=== PATIENT | female | born 1995 | race Two or more races ===

== ENCOUNTER 2023-03-14 13:58 | Outpatient (AMB) | payer OTHER, SELFPAY ==
--- NOTE | 2023-03-14 13:57 | A.OFFPC_ITS ---
Vital Signs 03/14/23 14:01 Height 5 ft 5 in Weight 173 lb 8 oz BMI 28.9 BP 116/84 Blood Pressure Location Rt brachial Position Sitting Pulse 83 Pulse Source Pulse Oximeter Pulse Oximetry (%) 97 Oxygen Delivery Method Room Air Intake Visit Reasons: New patient-physical exam Allergies No Known Allergies Allergy (Verified 03/14/23 14:03) Medication List - Last Reconciled 03/14/23 by Valentine Bhatia MD No Known Home Meds Tobacco use date assessed: 03/14/23 Dental Screening Dental Screen Date: 03/14/23 Did you have a dental visit in the last 12 months?: Yes Did you have a dental problem in the last 6 months where you did not have access to dental care?: No Was dental information given to patient?: Patient has dentist HPI New patient-physical exam HPI Details Patient is 27-year-old female came in today for her initial establish care and physical exam She moved from [facility] and has not seen any primary care back home Patient says that she has a history of chronic constipation she has tried taking more fiber and drink more water but that is not helping I have told her to take Senokot as tablets they are [id number] 1 or 2 daily If that does not work she needs to get back to me. Patient already have OBGYN Doctor Otmaskin Her BMI is 28.9 patient would like to have a dietary consultation. She also have facial acne and for that she would like a referral to Dermatology Patient wears glasses for that she need appointment with accounting professor she will book appointment herself. Lab order placed to be done fasting she is complaining of feeling tired and fatigued most days. We will be monitoring CBC and thyroid test along with vitamin deficiencies. She also have a family history of thyroid problem. Her depression screening is positive patient says that she was taking medication at 1 time but she does not want to take medication anymore. She would like to manage it herself, she also declined therapy appointments I offered her a follow-up appointment to go over labs which patient has declined today she will give me a call if she need to discuss anything further. She would return next year for physical examination. [facility] Social History Housing: Apartment e-Cigarette/Vaping Use: Never Used service: No Cognitive needs: No Hearing needs: No Vision needs: Yes Questionnaire PHQ-9 Over the last 2 weeks, how often have you been bothered by any of the following problems? 1. Little interest or pleasure in doing things: several days 2. Feeling down, depressed, or hopeless: several days 3. Trouble falling or staying asleep, or sleeping too much: several days 4. Feeling tired or having little energy: more than half the days 5. Poor appetite or overeating: more than half the days 6. Feeling bad about yourself - or that you are a failure or have let yourself or your family down: more than half the days 7. Trouble concentrating on things, such as reading the newspaper or watching television: more than half the days 8. Moving or speaking so slowly that other people could have noticed. Or the opposite - being so fidgety or restless that you have been moving around a lot more than usual: not at all 9. Thoughts that you would be better off or of hurting yourself in some way: not at all Total score: 11 Depression Screening Interpretation: Positive 08272 - PHQ-9 Billing: Yes Source: Developed by Drs. Benigno Lucas, Alesia Gonzalez, Thomas Mccrary and colleagues, with an educational phuong from [employer]. Thrive Questionnaire Date Thrive assessed: 03/14/23 I am a: Patient What is your living situation today?: I have a steady place to live Within the past 12 months, did the food you bought not last and you didn't have the money to get more?: Never true Within the past 12 months, did you worry whether your food would run out before you got money to buy more?: Never true Do you have trouble paying for medicines?: No Do you have trouble getting transportation to medical appointments?: No Do you have trouble paying your heating and electricity bill?: No Do you have trouble taking care of your child, family member or friend?: No Do you have trouble with day-to-day activities such as bathing, preparing meals, shopping, managing finances, etc.?: No Are you currently unemployed and looking for a job?: No Are you interested in more education?: No Currently or been in a relationship where the following occur: no concerns reported AUDIT C Alcohol Use Questionnaire (AUDIT-C) 1. How often do you have a drink containing alcohol?: Never 3. How often do you have six or more drinks on one occasion?: Never Total Score: 0 Score Reviewed/Action Taken: Yes ROJELIO-7 AMB Questionnaire ROJELIO-7 Date ROJELIO - 7 assessed: 03/14/23 Feeling nervous, anxious, or on edge: 2 = More than half the days Not being able to stop or control worryin = More than half the days Worrying too much about different things: 2 = More than half the days Trouble relaxin = Several days Being so restless that it is hard to sit still: 1 = Several days Becoming easily annoyed or irritable: 1 = Several days Feeling afraid as if something awful might happen: 2 = More than half the days Total ROJELIO-7 score (0-4 normal; 5-9 mild; 10-14 moderate; 15-21 severe): 11 Source: Developed by Drs. Benigno Lucas, Alesia Gonzalez, Thomas Mccrary and colleagues, with an educational phuong from [employer]. ROJELIO-7 Assessment Billing ROJELIO-7 Assessment Tool: ROJELIO-7 Assessment 12329 Review of Systems Const Denies chills, Denies fever(s) and Denies headache(s) Eyes Denies blurry vision ENT Denies headache(s), Denies nasal discharge, Denies nasal obstruction, Denies odynophagia and Denies sinus pain Card Denies chest pain at rest and Denies chest pain with activity Resp Denies cough and Denies hemoptysis GI Denies diarrhea, Denies odynophagia, Denies vomiting and Denies hematemesis Reports as per HPI Musc Denies abnormal gait Skin/Breast Reports as per HPI Neuro Denies Neuro-related abnormal movements, Denies Abnormal speech present, Denies abnormal gait, Denies headache(s) and Denies Sensory deficit (Neuro) Psych Denies mood swings and Denies paranoia Endo Reports as per HPI Mehdi/Lymph Reports as per HPI Aller/Immun Reports as per HPI Physical exam (Primary Care) Vital Signs: Last Vital Signs Pulse 83 03/14/23 14:01 BP 116/84 03/14/23 14:01 Pulse Ox 97 03/14/23 14:01 Oxygen Delivery Method Room Air 03/14/23 14:01 BMI result Body Mass Index 28.9 Tobacco/Smoking Status: Tobacco use Status Tobacco use date assessed 03/14/23 03/14/23 13:59 e-Cigarette/Vaping Use Never Used 03/14/23 13:59 Depression Screening Interpretation: Positive Currently or been in a relationship where the following occur: no concerns reported Const General: cooperative, comfortable and no acute distress Orientation/consciousness: patient oriented x3 HENMT Head: Yes normocephalic and Yes atraumatic Eyes General: appearance normal, both eyes and all related structures Pupils: Equal, round and reactive pupils present EOM: EOMs intact bilaterally Neck Neck: Yes supple and No lymphadenopathy Thyroid: Thyroid normal Lymphatic: no lymphadenopathy noted Resp Effort & Inspection: normal respiratory effort and able to speak in complete sentences Auscultation: clear to auscultation bilaterally Cardio Heart sounds: S1 normal heart sound present and S2 normal heart sound present GI Palpation (GI): Soft to palpation and nontender Auscultation: normal bowel sounds General: Yes no CVA tenderness Back/Spine/Pelvis Back: no CVA tenderness Skin General skin exam: elasticity normal and turgor normal Neuro General: patient oriented x3 and gait normal Cranial nerves: Yes Equal, round and reactive pupils present Speech: No Abnormal speech present Sensory Exam: No Sensory deficit (Neuro) Coordination: tandem gait normal and Romberg test negative Extrem General: Yes normal exam except as noted and No edema Assessment and Plan Assessment & Plan (1) Encounter for general adult medical examination with abnormal findings: Code(s): Z00.01 - Encounter for general adult medical examination with abnormal findings (2) Major depressive disorder, recurrent, mild: Code(s): F33.0 - Major depressive disorder, recurrent, mild (3) Fatigue: Code(s): R53.83 - Other fatigue Qualifiers: Fatigue type: chronic, unspecified Qualified Code(s): R53.82 - Chronic fatigue, unspecified (4) Acne erythematosa: Code(s): L71.9 - Rosacea, unspecified (5) Tired: Code(s): R53.83 - Other fatigue (6) Overweight (BMI 25.0-29.9): Code(s): E66.3 - Overweight (7) Constipation by delayed colonic transit: Code(s): K59.01 - Slow transit constipation Plan Patient is 27-year-old female came in today for her initial establish care and physical exam She moved from [facility] and has not seen any primary care back home Patient says that she has a history of chronic constipation she has tried taking more fiber and drink more water but that is not helping I have told her to take Senokot as tablets they are [id number] 1 or 2 daily If that does not work she needs to get back to me. Patient already have OBGYN Doctor Mamadou Her BMI is 28.9 patient would like to have a dietary consultation. She also have facial acne and for that she would like a referral to Dermatology Patient wears glasses for that she need appointment with accounting professor she will book appointment herself. Lab order placed to be done fasting she is complaining of feeling tired and fatigued most days. We will be monitoring CBC and thyroid test along with vitamin deficiencies. She also have a family history of thyroid problem. Her depression screening is positive patient says that she was taking medication at 1 time but she does not want to take medication anymore. She would like to manage it herself, she also declined therapy appointments I offered her a follow-up appointment to go over labs which patient has declined today she will give me a call if she need to discuss anything further. She would return next year for physical examination. Orders: Orders Complete Blood Count Auto Diff Today E66.3 - Overweight, F33.0 - Major depressive disorder, recurrent, mild, K59.01 - Slow transit constipation, L71.9 - Rosacea, unspecified, R53.83 - Other fatigue, Z00.01 - Encounter for general adult medical examination with abnormal findings TSH reflex Free T4 Today E66.3 - Overweight, F33.0 - Major depressive disorder, recurrent, mild, K59.01 - Slow transit constipation, L71.9 - Rosacea, unspecified, R53.83 - Other fatigue, Z00.01 - Encounter for general adult medical examination with abnormal findings Vitamin B12 Today E66.3 - Overweight, F33.0 - Major depressive disorder, recurrent, mild, K59.01 - Slow transit constipation, L71.9 - Rosacea, unspecified, R53.83 - Other fatigue, Z00.01 - Encounter for general adult medical examination with abnormal findings Comprehensive [place]. Panel Fast Today E66.3 - Overweight, F33.0 - Major depressive disorder, recurrent, mild, K59.01 - Slow transit constipation, L71.9 - Rosacea, unspecified, R53.83 - Other fatigue, Z00.01 - Encounter for general adult medical examination with abnormal findings Lipid Panel Today E66.3 - Overweight, F33.0 - Major depressive disorder, recurrent, mild, K59.01 - Slow transit constipation, L71.9 - Rosacea, unspecified, R53.83 - Other fatigue, Z00.01 - Encounter for general adult medical examination with abnormal findings Vitamin D 25-OH (D2 and D3) Today E66.3 - Overweight, F33.0 - Major depressive disorder, recurrent, mild, K59.01 - Slow transit constipation, L71.9 - Rosacea, unspecified, R53.83 - Other fatigue, Z00.01 - Encounter for general adult medical examination with abnormal findings Referrals [employer]VERT[employer] SALES [employer]OC[employer] Referral Z01.419 - Encounter for gynecological examination (general) (routine) without abnormal findings Dermatology Referral L71.9 - Rosacea, unspecified Medications: New sennosides-docusate sodium 8.6-50 mg (Senokot-S) 1 tab-cap PO BEDTIME 90 days 90 tabs 0RF K59.03 - Drug induced constipation, T40.2X5A - Adverse effect of other opioids, initial encounter Coding Level of Care Code New Pt Prev Care 18-39yr(08556 Diagnoses Encounter for general adult medical examination with abnormal findings Z00.01 Major depressive disorder, recurrent, mild F33.0 Chronic fatigue R53.82 Fatigue type: chronic, unspecified Acne erythematosa L71.9 Tired R53.83 Overweight (BMI 25.0-29.9) E66.3 Constipation by delayed colonic transit K59.01 Additional Codes ROJELIO-7 Assessment Billing - ROJELIO-7 Assessment Tool: ROJELIO-7 Assessment 39143 ([id number])
[2023-03-14 14:01] VITALS: BP 116/84; PULSE 83; O2SAT 97; BMI 28.9
== END 2023-03-14 14:21 | disposition home or self-care (01) ==
PROVIDERS: PCP Internal Medicine; Visit Provider Internal Medicine
DX: Z00.01 Encounter for general adult medical examination with abnormal findings (principal); F33.0 Major depressive disorder, recurrent, mild; R53.82 Chronic fatigue, unspecified; L71.9 Rosacea, unspecified; R53.83 Other fatigue; E66.3 Overweight; K59.01 Slow transit constipation
CPT/HCPCS: 99385

== ENCOUNTER 2023-03-20 08:11 | Outpatient (REF) | payer OTHER, SELFPAY ==
[2023-03-25 16:47] LABS: Vitamin D 25-OH, D2 <4 ng/mL; Vitamin D 25-OH, D3 8 ng/mL; Vitamin D 25-OH, Total 8 ng/mL (30-100)
== END 2023-03-20 08:12 | disposition home or self-care (01) ==
LOC: HO.HMGCLDS 08:11
PROVIDERS: PCP Internal Medicine; Visit Provider Internal Medicine
DX: Z00.01 Encounter for general adult medical examination with abnormal findings (principal); L71.9 Rosacea, unspecified; E66.3 Overweight; F33.0 Major depressive disorder, recurrent, mild; K59.01 Slow transit constipation
CPT/HCPCS: 36415; 80053; 80061; 82306; 82607; 84443; 85025

== ENCOUNTER 2024-04-06 10:25 | Outpatient (AMB) | payer OTHER, SELFPAY ==
[2024-04-06 10:31] VITALS: BP 124/78; PULSE 96; O2SAT 96; BMI 29.6
--- NOTE | 2024-04-06 10:31 | A.OFFPC_ITS ---
Vital Signs 04/06/24 10:31 Height 5 ft 5 in Weight 178 lb BMI 29.6 BP 124/78 Blood Pressure Location Rt brachial Position Sitting Pulse 96 Pulse Source Pulse Oximeter Pulse Oximetry (%) 96 Intake Visit Reasons: Annual PE Allergies No Known Allergies Allergy (Verified 04/06/24 10:33) Medication List - Last Reconciled 04/06/24 by Valentine Bhatia MD drospirenone-ethinyl estradiol 3-0.02 mg (Jesenia (28)) 1 tab PO DAILY sennosides-docusate sodium 8.6-50 mg (Senokot-S) 1 tab-cap PO BEDTIME 90 days Tobacco use date assessed: 04/06/24 Dental Screening Dental Screen Date: 04/06/24 Did you have a dental visit in the last 12 months?: Yes Did you have a dental problem in the last 6 months where you did not have access to dental care?: No Was dental information given to patient?: Patient has dentist HPI Annual PE HPI Details Patient is 29-year-old female came in today for physical exam She has developed a rash around her upper lip which does respond to hydrocortisone But patient does not want to continue taking that She has not seen Dermatology, I have placed a referral to confirm the diagnosis of eczema And she can talk about Elidel script with a gas or water meter installer Patient says that she does not lick her lips, rash has appeared last year and has now resolved But only when she is using hydrocortisone. BMI is elevated she has gained 5 lb since last seen She has already had visit with the dietitian and is eating healthy and trying to lose weight She is taking vitamin-D supplement New set of lab order placed to be done fasting Patient does have Dr. 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 1. Little interest or pleasure in doing things: not at all 2. Feeling down, depressed, or hopeless: not at all 3. Trouble falling or staying asleep, or sleeping too much: not at all 4. Feeling tired or having little energy: several days 5. Poor appetite or overeating: several days 6. Feeling bad about yourself - or that you are a failure or have let yourself or your family down: several days 7. Trouble concentrating on things, such as reading the newspaper or watching television: several days 8. Moving or speaking so slowly that other people could have noticed. Or the opposite - being so fidgety or restless that you have been moving around a lot more than usual: not at all 9. Thoughts that you would be better off or of hurting yourself in some way: not at all Total score: 4 Depression Screening Interpretation: Negative Depression Screening Done: Yes 55237 - PHQ-9 Billing: Yes Source: Developed by Drs. Benigno Lucas, Alesia Gonzalez, Thomas Mccrary and colleagues, with an educational phuong from [employer]. Thrive Questionnaire Date Thrive assessed: 04/06/24 I am a: Patient What is your living situation today?: I have a steady place to live Within the past 12 months, did the food you bought not last and you didn't have the money to get more?: Never true Within the past 12 months, did you worry whether your food would run out before you got money to buy more?: Never true Do you have trouble paying for medicines?: No Do you have trouble getting transportation to medical appointments?: No Do you have trouble paying your heating and electricity bill?: No Do you have trouble taking care of your child, family member or friend?: No Do you have trouble with day-to-day activities such as bathing, preparing meals, shopping, managing finances, etc.?: No Are you currently unemployed and looking for a job?: No Are you interested in more education?: No Please select the resources that you would like help with: None Currently or been in a relationship where the following occur: No concerns reported THRIVE Score: 0 AUDIT C Alcohol Use Questionnaire (AUDIT-C) 1. How often do you have a drink containing alcohol?: Monthly or less 2. How many drinks containing alcohol do you have on a typical day when you are drinking?: 1 or 2 3. How often do you have six or more drinks on one occasion?: Never Total Score: 1 Score Reviewed/Action Taken: Yes ROJELIO-7 AMB Questionnaire ROJELIO-7 Date ROJELIO - 7 assessed: 04/06/24 Feeling nervous, anxious, or on edge: 1 = Several days Not being able to stop or control worryin = Several days Worrying too much about different things: 1 = Several days Trouble relaxin = Several days Being so restless that it is hard to sit still: 1 = Several days Becoming easily annoyed or irritable: 1 = Several days Feeling afraid as if something awful might happen: 1 = Several days Total ROJELIO-7 score (0-4 normal; 5-9 mild; 10-14 moderate; 15-21 severe): 7 Source: Developed by Drs. Benigno Lucas, Alesia Gonzalez, Thomas Mccrary and colleagues, with an educational phuong from [employer]. ROJELIO-7 Assessment Billing ROJELIO-7 Assessment Tool: ROJELIO-7 Assessment 43774 Review of Systems Const Denies chills, Denies fever(s) and Denies headache(s) Eyes Denies blurry vision ENT Denies headache(s), Denies nasal discharge, Denies nasal obstruction, Denies odynophagia and Denies sinus pain Card Denies chest pain at rest and Denies chest pain with activity Resp Denies cough and Denies hemoptysis GI Denies diarrhea, Denies odynophagia, Denies vomiting and Denies hematemesis Reports as per HPI Musc Denies abnormal gait Skin/Breast Reports as per HPI Neuro Denies Neuro-related abnormal movements, Denies Abnormal speech present, Denies abnormal gait, Denies headache(s) and Denies Sensory deficit (Neuro) Psych Denies mood swings and Denies paranoia Endo Reports as per HPI Mehdi/Lymph Reports as per HPI Aller/Immun Reports as per HPI Physical exam (Primary Care) Vital Signs: Last Vital Signs Pulse 96 04/06/24 10:31 BP 124/78 04/06/24 10:31 Pulse Ox 96 04/06/24 10:31 BMI result Body Mass Index 22.7 Tobacco/Smoking Status: Tobacco use Status Tobacco use date assessed 04/06/24 04/06/24 10:39 Patient Tobacco Use Status Never used Tobacco 04/06/24 10:39 e-Cigarette/Vaping Use Never Used 04/06/24 10:39 PHQ-9: PHQ-9 Score PHQ-9: Total score 4 04/06/24 10:39 Depression Screening Interpretation: Negative Thrive Assessment: Date of Thrive Assessment Date Thrive assessed 04/06/24 04/06/24 10:39 Currently or been in a relationship where the following occur: No concerns reported Const General: cooperative, comfortable and no acute distress Orientation/consciousness: patient oriented x3 HENMT Head: Yes normocephalic and Yes atraumatic Eyes General: appearance normal, both eyes and all related structures Pupils: Equal, round and reactive pupils present EOM: EOMs intact bilaterally Neck Neck: Yes supple and No lymphadenopathy Thyroid: Thyroid normal Lymphatic: no lymphadenopathy noted Chest Breast/axilla palpation: normal palpation of the breasts Resp Effort & Inspection: normal respiratory effort and able to speak in complete sentences Auscultation: clear to auscultation bilaterally Cardio Heart sounds: S1 normal heart sound present and S2 normal heart sound present GI Palpation (GI): Soft to palpation and nontender Auscultation: normal bowel sounds General: Yes no CVA tenderness Back/Spine/Pelvis Back: no CVA tenderness Skin Other: Erythematous rash around upper lip without any papules or pustules or scaling General skin exam: elasticity normal and turgor normal Neuro General: patient oriented x3 and gait normal Cranial nerves: Yes Equal, round and reactive pupils present Speech: No Abnormal speech present Sensory Exam: No Sensory deficit (Neuro) Coordination: tandem gait normal and Romberg test negative Extrem General: Yes normal exam except as noted and No edema Coding Level of Care Code Est Pt Level 3 (10807) Est Pt Prev Care 18-39y(12154) Diagnoses Encounter for general adult medical examination with abnormal findings Z00. Rash of face R21 Overweight (BMI 25.0-29.9) E66.3 Vitamin D deficiency E55.9 Anxiety, generalized F41.1 Additional Codes ROJELIO-7 Assessment Billing - ROJELIO-7 Assessment Tool: ROJELIO-7 Assessment 10035 ([id number]) Assessment & Plan Assessment & Plan (1) Encounter for general adult medical examination with abnormal findings: Code(s): Z00.01 - Encounter for general adult medical examination with abnormal findings Category: Medical (2) Rash of face: Code(s): R21 - Rash and other nonspecific skin eruption Category: Medical (3) Overweight (BMI 25.0-29.9): Code(s): E66.3 - Overweight Category: Medical (4) Vitamin D deficiency: Code(s): E55.9 - Vitamin D deficiency, unspecified Category: Medical (5) Anxiety, generalized: Code(s): F41.1 - Generalized anxiety disorder Category: Medical Plan Patient is 29-year-old female came in today for physical exam She has developed a rash around her upper lip which does respond to hydrocortisone But patient does not want to continue taking that She has not seen Dermatology, I have placed a referral to confirm the diagnosis of eczema And she can talk about Toshia script with a gas or water meter installer Patient says that she does not lick her lips, rash has appeared last year and has now resolved But only when she is using hydrocortisone. BMI is elevated she has gained 5 lb since last seen She has already had visit with the dietitian and is eating healthy and trying to lose weight She is taking vitamin-D supplement New set of lab order placed to be done fasting Patient does have OBGYNerissa, Dr. 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 Orders: Orders Complete Blood Count Auto Diff Today E55.9 - Vitamin D deficiency, unspecified, E66.3 - Overweight, F41.1 - Generalized anxiety disorder, R21 - Rash and other nonspecific skin eruption, Z00.01 - Encounter for general adult medical examination with abnormal findings Lipid Panel Today E55.9 - Vitamin D deficiency, unspecified, E66.3 - Overweight, F41.1 - Generalized anxiety disorder, R21 - Rash and other nonspecific skin eruption, Z00.01 - Encounter for general adult medical examination with abnormal findings Vitamin D 25-OH (D2 and D3) Today E55.9 - Vitamin D deficiency, unspecified, E66.3 - Overweight, F41.1 - Generalized anxiety disorder, R21 - Rash and other nonspecific skin eruption, Z00.01 - Encounter for general adult medical examination with abnormal findings TSH reflex Free T4 Today E55.9 - Vitamin D deficiency, unspecified, E66.3 - Overweight, F41.1 - Generalized anxiety disorder, R21 - Rash and other nonspecific skin eruption, Z00.01 - Encounter for general adult medical examination with abnormal findings Comprehensive [place]. Panel Fast Today E55.9 - Vitamin D deficiency, unspecified, E66.3 - Overweight, F41.1 - Generalized anxiety disorder, R21 - Rash and other nonspecific skin eruption, Z00.01 - Encounter for general adult medical examination with abnormal findings
== END 2024-04-06 10:59 | disposition home or self-care (01) ==
PROVIDERS: PCP Internal Medicine; Visit Provider Internal Medicine
DX: Z00.00 Encounter for general adult medical examination without abnormal findings (principal); R21 Rash and other nonspecific skin eruption; E66.3 Overweight; E55.9 Vitamin D deficiency, unspecified; F41.1 Generalized anxiety disorder

== ENCOUNTER → 2024-04-06 10:25 | Outpatient (BNVA) | payer OTHER, SELFPAY | PROVIDERS: PCP Internal Medicine; Visit Provider Internal Medicine | DX: Z00.01 Encounter for general adult medical examination with abnormal findings (principal); R21 Rash and other nonspecific skin eruption; E66.3 Overweight; Z68.29 Body mass index [BMI] 29.0-29.9, adult; E55.9 Vitamin D deficiency, unspecified; F41.1 Generalized anxiety disorder | CPT/HCPCS: 96127 ==

== ENCOUNTER 2024-04-13 08:03 | Outpatient (REF) | payer OTHER, SELFPAY ==
[2024-04-13 10:13] LABS: MANUAL DIFF FLAG NO
[2024-04-13 10:19] LABS: Basophils Absolute Auto 0.1 X10*3/uL (0.0-0.2); Basophils Percent Auto 0.8 % (0-2); Eosinophils Absolute Auto 0.1 X10*3/uL (0.0-0.4); Hematocrit 42.2 % (37.0-47.0); Hemoglobin 13.7 g/dl (12.0-16.0); Imm Gran Abs Auto 0.02 X10*3/uL (0.00-0.03); Imm Gran Pct Auto 0.3 % (0.0-0.4); Lymphocytes Absolute Auto 1.9 X10*3/uL (1.2-4.9); Lymphocytes Percent Auto 26.5 % (20-40); Mean Corpuscular HGB Conc 32.5 g/dl (31.0-35.0); Mean Corpuscular Hemoglobin 27.2 pg (27.0-33.0); Mean Corpuscular Volume 83.9 fL (80.0-98.0); Mean Platelet Volume 10.7 fL (9.4-12.3); Monocytes Absolute Auto 0.5 X10*3/uL (0.1-1.2); Monocytes Percent Auto 7.3 % (2-11); Neutrophils Absolute Auto 4.6 x10*3/uL (2.0-8.3); Neutrophils Percent Auto 64.1 % (45-73); Platelet Count 343 X10*3/uL (160-400); Red Blood Count 5.03 X10*6/uL (4.20-5.50); Red Cell Distribution Width 13.4 % (11.0-16.0); White Blood Count 7.1 X10*3/uL (4.8-10.8)
[2024-04-13 10:49] LABS: Alanine Aminotransferase 15 U/L (0-31); Albumin Level 3.9 g/dL (3.5-5.0); Alkaline Phosphatase 85 U/L (39-117); Anion Gap 14 (12-20); Aspartate Amino Transferase 21 U/L (5-31); Bilirubin Total 0.2 mg/dL (0.0-1.0); Blood Urea Nitrogen 11 mg/dL (9-16); Calcium 9.8 mg/dL (8.4-10.2); Carbon Dioxide 24 mmol/L (22-29); Chloride 105 mmol/L (96-108); Cholesterol 197 mg/dL (<200); Estimated Glomerular Filt Rate > 60; Glucose Fasting 89 mg/dL (60-99); HDL Cholesterol 66 mg/dL (>40); LDL Cholesterol Calculated 114 mg/dL (<100); Potassium 4.2 mmol/L (3.3-5.1); Sodium 139 mmol/L (135-145); Total Protein 7.8 g/dL (6.5-8.0); Triglycerides 88 mg/dL (<150)
[2024-04-13 11:15] LABS: TSH reflex Free T4 1.84 uIU/mL (0.32-4.0)
[2024-04-17 16:38] LABS: Vitamin D 25-OH, D2 <4 ng/mL; Vitamin D 25-OH, D3 41 ng/mL; Vitamin D 25-OH, Total 41 ng/mL (30-100)
== END 2024-04-13 08:04 | disposition home or self-care (01) ==
LOC: HO.HMGCLDS 08:03
PROVIDERS: PCP Internal Medicine; Visit Provider Internal Medicine
DX: Z00.01 Encounter for general adult medical examination with abnormal findings (principal); R21 Rash and other nonspecific skin eruption; E55.9 Vitamin D deficiency, unspecified; E66.3 Overweight; F41.1 Generalized anxiety disorder
CPT/HCPCS: 36415; 80053; 80061; 82306; 84443; 85025

== ENCOUNTER 2025-04-12 12:15 | Outpatient (AMB) | payer OTHER, SELFPAY ==
--- NOTE | 2025-04-12 12:36 | A.OFFPC_ITS ---
Vital Signs 04/12/25 12:38 04/12/25 12:57 Height 5 ft 5 in Weight 182 lb BMI 30.3 BP 140/96 H 120/80 Blood Pressure Location Rt brachial Rt brachial Position Sitting Sitting Respiration 16 Pulse 80 Pulse Source Pulse Oximeter Pulse Oximetry (%) 98 Oxygen Delivery Method Room Air Intake Visit Reasons: Annual PE Allergies No Known Allergies Allergy (Verified 04/06/24 10:33) Medication List - Last Reconciled 04/12/25 by Valentine Bhatia MD drospirenone-ethinyl estradiol 3-0.02 mg (Jesenia (28)) 1 tab PO DAILY sennosides-docusate sodium 8.6-50 mg (Senokot-S) 1 tab-cap PO BEDTIME 90 days Tobacco use date assessed: 04/06/24 Dental Screening Dental Screen Date: 04/06/24 HPI Annual PE HPI Details History of Present Illness The patient is a 30-year-old female presenting for an annual physical exam and to discuss difficulty with weight loss. Difficulty with weight loss: - The patient reports attempting to lose weight for most of the current year without success, despite her efforts. - She is not currently exercising but wa s doing so previously. - A recent move in February has been a source of stress and disruption to her routine. Polycystic Ovary Syndrome (PCOS): - The patient has a known history of Abraham ycystic Ovary Syndrome. - She is taking control pills for both contraception and management of her PCOS. - She receives care from an GLASS CALIBRATOR at [facility], with her last visit occurring earlier this year. Chronic Constipation: - The patient reports experiencing const ipation all the time. - She manages this with an bpqc-ywr-vraa ter stool softener and finds it is effective when taken intermittently but not with consistent use. Transient Elevated Blood Pressure: - The patient's initial blood pressure r eading was 140/96 mmHg. - She has no personal history of hyperte nsion and takes no medication for it. - She does report a family history of hi gh blood pressure. - Upon re-measurement, her blood pressur e was normal at 129/80 mmHg. Medical History: - Polycystic Ovary Syndrome (PCOS) - Chronic constipation Social History: - Employment: The patient works as a [employer] worker, which involves exposure to many people. - Housing: She recently moved in er. - Exercise: She is not currently exercis ing but has in the past. - Nutrition: She reports a normal salt i ntake and does not add extra salt to her food. - Family Planning: She uses contro l pills. Family History: - History of high blood pressure Health Maintenance - Gynecological care: The patient is up to date with her GLASS CALIBRATOR visits, with the last one occurring earlier this year, where a breast exam was performed. - Laboratory screening: Labs were done l ast year and were normal; repeat labs including thyroid function testing are ordered for this visit. - Immunizations: The patient declined a flu vaccine today as she is currently recovering from a cold. [place] of Care - The patient sees an GLASS CALIBRATOR at [facility]. - She previously consulted a dermatologi st for a lip condition. Patient Instructions - You can try an tfxs-him-ssuedsa medica tion like Senokot for constipation. - Blood tests have been ordered for you. - Please go for your blood work after 10 :00 AM once you have recovered from your cold. - You should book a follow-up appointmen t to be seen in one year. Review of Systems - General: No fever no chills - Neurological: No headaches no dizzin ess - Ear nose throat: No sore throat no hearing difficulty no ear pain - Cardiovascular: No syncope, no chest pain, no palpitations - Gastrointestinal: No nausea vomiting or diarrhea - Endocrine: No polyuria polydipsia no heat intolerance - Genitourinary: No dysuria - Skin: No new complaints Physical Exam General: Cooperative, healthy appearing, comfortable, no acute distress Orientation: Patient oriented x3 Limitations: none Head: Normal to inspection Ears: Within normal limit visually Nose: Normal external nose present Face and sinus: Normal facial exam Eyes: Appearance normal, extraocular movement intact pupils reactive Neck: Normal visual inspection and supple Respiratory: Normal respiratory effort and able to speak in complete sentences. Clear to auscultation, no stridor Cardiovascular: S1 and S2 RRR GI: Normal to inspection. Soft to palpation and nontender. Skin: Turgor normal, no acute findings. Neuro: Patient oriented x3, motor sensory intact, balance intact, tandem pass Extremities: Normal to inspection . [facility] Social History Housing: Apartment Patient Tobacco Use Status: Never used Tobacco e-Cigarette/Vaping Use: Never Used service: No Current occupational status: employed Cognitive needs: No Hearing needs: No Vision needs: Yes Questionnaire PHQ-9 Over the last 2 weeks, how often have you been bothered by any of the following problems? 1. Little interest or pleasure in doing things: not at all 2. Feeling down, depressed, or hopeless: not at all 3. Trouble falling or staying asleep, or sleeping too much: not at all 4. Feeling tired or having little energy: not at all 5. Poor appetite or overeating: more than half the days 6. Feeling bad about yourself - or that you are a failure or have let yourself or your family down: several days 7. Trouble concentrating on things, such as reading the newspaper or watching television: more than half the days 8. Moving or speaking so slowly that other people could have noticed. Or the opposite - being so fidgety or restless that you have been moving around a lot more than usual: not at all 9. Thoughts that you would be better off or of hurting yourself in some way: not at all Total score: 5 Depression Screening Interpretation: Negative Depression Screening Done: Yes 42342 - PHQ-9 Billing: Yes Source: Developed by Drs. Benigno Lucas, Alesia Gonzalez, Thomas Mccrary and colleagues, with an educational phuong from [employer]. Thrive Questionnaire Date Thrive assessed: 04/07/25 I am a: Patient What is your living situation today?: I have a steady place to live Within the past 12 months, did the food you bought not last and you didn't have the money to get more?: Never true Within the past 12 months, did you worry whether your food would run out before you got money to buy more?: Never true Do you have trouble paying for medicines?: No Do you have trouble getting transportation to medical appointments?: No Do you have trouble paying your heating and electricity bill?: No Do you have trouble taking care of your child, family member or friend?: No Do you have trouble with day-to-day activities such as bathing, preparing meals, shopping, managing finances, etc.?: No Are you currently unemployed and looking for a job?: No Are you interested in more education?: No Please select the resources that you would like help with: None Currently or been in a relationship where the following occur: No concerns reported THRIVE Score: 0 AUDIT C Alcohol Use Questionnaire (AUDIT-C) 1. How often do you have a drink containing alcohol?: Monthly or less 2. How many drinks containing alcohol do you have on a typical day when you are drinking?: 1 or 2 3. How often do you have six or more drinks on one occasion?: Never Total Score: 1 ROJELIO-7 AMB Questionnaire ROJELIO-7 Date ROJELIO - 7 assessed: 04/06/24 Feeling nervous, anxious, or on edge: 1 = Several days Not being able to stop or control worryin = Several days Worrying too much about different things: 1 = Several days Trouble relaxin = Several days Being so restless that it is hard to sit still: 1 = Several days Becoming easily annoyed or irritable: 0 = Not at all Feeling afraid as if something awful might happen: 0 = Not at all Total ROJELIO-7 score (0-4 normal; 5-9 mild; 10-14 moderate; 15-21 severe): 5 Source: Developed by Drs. Benigno Lucas, Alesia Gonzalez, Thomas Mccrary and colleagues, with an educational phuong from [employer]. ROJELIO-7 Assessment Billing ROJELIO-7 Assessment Tool: ROJELIO-7 Assessment 20855 Physical exam (Primary Care) Vital Signs: Last Vital Signs Pulse 80 04/12/25 12:38 Resp 16 04/12/25 12:38 BP 120/80 04/12/25 12:57 Pulse Ox 98 04/12/25 12:38 Oxygen Delivery Method Room Air 04/12/25 12:38 BMI result Body Mass Index 30.3 Tobacco/Smoking Status: Tobacco use Status Tobacco use date assessed 04/06/24 04/12/25 12:36 Patient Tobacco Use Status Never used Tobacco 04/12/25 12:36 e-Cigarette/Vaping Use Never Used 04/12/25 12:36 PHQ-9: PHQ-9 Score PHQ-9: Total score 5 04/12/25 13:00 Depression Screening Interpretation: Negative Thrive Assessment: Date of Thrive Assessment Date Thrive assessed 04/07/25 04/12/25 12:36 Currently or been in a relationship where the following occur: No concerns reported Coding Level of Care Code Est Pt Level 3 (00757) Est Pt Prev Care 18-39y(91938) Diagnoses Encounter for general adult medical examination with abnormal findings Z00.01 Constipation by delayed colonic transit K59.01 Class 1 obesity due to excess calories without serious comorbidity with body mass index (BMI) of 30.0 to 30.9 in adult E66.09; Z68.30 Obesity classification: adult class 1 (BMI 30 - 34.9) Serious obesity comorbidity presence: without serious comorbidity Body mass index: BMI 30.0-30.9 PCOS (polycystic ovarian syndrome) E28.2 Additional Codes PHQ-9 - 75131 - PHQ-9 Billing: Yes ([id number]) ROJELIO-7 Assessment Billing - ROJELIO-7 Assessment Tool: ROJELIO-7 Assessment 11087 ([id number]) Assessment & Plan Assessment & Plan (1) Encounter for general adult medical examination with abnormal findings: Code(s): Z00.01 - Encounter for general adult medical examination with abnormal findings Category: Medical (2) Constipation by delayed colonic transit: Code(s): K59.01 - Slow transit constipation Category: Medical (3) Obesity due to excess calories: Code(s): E66.09 - Other obesity due to excess calories Category: Medical Qualifiers: Obesity classification: adult class 1 (BMI 30 - 34.9) Serious obesity comorbidity presence: without serious comorbidity Body mass index: BMI 30.0- 30.9 Qualified Code(s): E66.09 - Other obesity due to excess calories; Z68.30 - Body mass index [BMI] 30.0-30.9, adult (4) PCOS (polycystic ovarian syndrome): Code(s): E28.2 - Polycystic ovarian syndrome Category: Medical Plan Difficulty with weight loss: - The patient reports attempting to lose weight for most of the current year without success, despite her efforts. - She is not currently exercising but was doing so previously. - A recent move in February has been a source of stress and disruption to her routine. Polycystic Ovary Syndrome (PCOS): - The patient has a known history of Polycystic Ovary Syndrome. - She is taking control pills for both contraception and management of her PCOS. - She receives care from an GLASS CALIBRATOR at [facility], with her last visit occurring earlier this year. Chronic Constipation: - The patient reports experiencing constipation all the time. - She manages this with an idia-xdz-pcvcurj stool softener and finds it is effective when taken intermittently but not with consistent use. Transient Elevated Blood Pressure: - The patient's initial blood pressure reading was 140/96 mmHg. - She has no personal history of hypertension and takes no medication for it. - She does report a family history of high blood pressure. - Upon re-measurement, her blood pressure was normal at 129/80 mmHg. 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 - Housing: She recently moved in February. - Exercise: She is not currently exercising but has in the past. - Nutrition: She reports a normal salt intake and does not add extra salt to her food. - Family Planning: She uses control pills. Family History: - History of high blood pressure Health Maintenance - Gynecological care: The patient is up to date with her GLASS CALIBRATOR visits, with the last one occurring earlier this year, where a breast exam was performed. - Laboratory screening: Labs were done last year and were normal; repeat labs including thyroid function testing are ordered for this visit. - Immunizations: The patient declined a flu vaccine today as she is currently recovering from a cold. [place] of Care - The patient sees an GLASS CALIBRATOR at [facility]. - She previously consulted a sheet combining operator for a lip condition. Patient Instructions - You can try an cfnr-yum-ehaqfms medication like Senokot for constipation. - Blood tests have been ordered for you. - Please go for your blood work after 10:00 AM once you have recovered from your cold. - You should book a follow-up appointment to be seen in one year. . Orders: Orders Hemoglobin A1c Today E28.2 - Polycystic ovarian syndrome, E66.09 - Other obesity due to excess calories, Z00.01 - Encounter for general adult medical examination with abnormal findings Complete Blood Count Auto Diff Today E28.2 - Polycystic ovarian syndrome, E66.09 - Other obesity due to excess calories, Z00.01 - Encounter for general adult medical examination with abnormal findings Comprehensive [place]. Panel Fast Today E28.2 - Polycystic ovarian syndrome, E66.09 - Other obesity due to excess calories, Z00.01 - Encounter for general adult medical examination with abnormal findings Lipid Panel Today E28.2 - Polycystic ovarian syndrome, E66.09 - Other obesity due to excess calories, Z00.01 - Encounter for general adult medical examination with abnormal findings TSH reflex Free T4 Today E28.2 - Polycystic ovarian syndrome, E66.09 - Other obesity due to excess calories, Z00.01 - Encounter for general adult medical examination with abnormal findings
[2025-04-12 12:38] VITALS: BP 140/96; PULSE 80; RESP 16; O2SAT 98; BMI 30.3
[2025-04-12 12:57] VITALS: BP 120/80
--- OUTSIDE RECORDS SUMMARY | 2025-04-12 15:33 | XMS_ITS | Clinical Summary ---
Author Organization [address] Address [address] [place] [id number] Care Team Providers Care Senior Software Development Manager Name Role Phone No, Pcp (Do Not Change Name) Primary Care Provid er Unavailable Allergies No known active allergies Medications DORIS, 28, 3-0.02 mg per tablet Take 1 tablet by mouth daily. 07/30/2024 Active Social History Tobacco Use Types Packs/Day Years Used Date Smoking Tobacco: Never Smokeless Tobacco: Never Tobacco Cessation:Counseling Given: Not Answered Alcohol Use Standard Drinks/Week Comments Never 0 (1 standard drink = 0.6 oz pur e alcohol) Comments No Sex and Gender Information Value Date Recorded Sex Assigned at Not on file Legal Sex Female 10:21 AM EDT Gender Identity Not on file Sexual Orientation Not on file Last Filed Vital Signs Vital Sign Reading Time Taken Comments Blood Pressure 129/88 09/25/2024 10:34 AM EDT Pulse 76 09/25/2024 10:34 AM EDT Temperature 37.2 C (99 F) 09/25/2024 10:34 AM EDT Respiratory Rate 16 09/25/2024 10:34 AM EDT Oxygen Saturation 99% 09/25/2024 10:34 AM EDT Inhaled Oxygen Concentration - - Weight 79.4 kg (175 lb) 09/25/2024 10:34 AM EDT Height 165.1 cm (5' 5 ) 09/25/2024 10:34 AM EDT Body Mass Index 29.12 09/25/2024 10:34 AM EDT Plan of Treatment Health Maintenance Due Date Last Done Comments HIV screening 2007 Hepatitis C screening 2012 Tetanus adult (Td q 10,TDAP once) 2014 Cervical cancer screening 2015 Influenza vaccine 01/14/2025 Covid-19 vaccine series ( - 2024-26 season) 2025 RSV Immunization (1 - 1-dose 75+ series) 2069 Meningococcal B Vaccine Aged Out No l onger eligible based on patient's age to complete this topic Meningococcal Vaccine Aged Out No bharathi elda eligible based on patient's age to complete this topic Pneumococcal Vaccine (2 - 49 years) Aged Out No longer eligible based on patient's age to complete this topic Insurance [facility] BS BS Care Teams Senior Software Development Manager Relationship Specialty Start Date End Date No, Pcp (Do Not Change Name) PCP - General 09/25/24
--- OUTSIDE RECORDS SUMMARY | 2025-04-12 15:33 | XMS_ITS ---
Author Name [facility] Organization Unknown History of Medication Use Medication Directions Dispensed Refills Start Date End Date Stat us meclizine (ANTIVERT) 25 mg tablet Take 1 tablet (25 mg total) by mouth 3 (three) times daily as needed for dizziness for up to 10 days. 09/25/2024 active DORIS, 28, 3-0.02 mg per tablet Take 1 tablet by mouth daily. 07/30/2024 active Problems Problem Status Onset Date Problem Type Date of Resoluti on Source Dizziness active EncounterDiagnosisAct [facility] Encounters Encounter Type Encounter Reason Primary Diagnosis Location Date Ambulatory Dizziness and giddiness Dizziness and giddiness [facility] 09/25/2024 Care Team Organization Name Specialty Phone Email Start Date End Da te [facility] 09/25/2024
== END 2025-04-12 12:59 | disposition home or self-care (01) ==
LOC: HO.HMCC 12:16
PROVIDERS: PCP Internal Medicine; Visit Provider Internal Medicine
DX: Z00.01 Encounter for general adult medical examination with abnormal findings (principal); K59.01 Slow transit constipation; E66.09 Other obesity due to excess calories; Z68.30 Body mass index [BMI] 30.0-30.9, adult; E28.2 Polycystic ovarian syndrome

== ENCOUNTER → 2025-04-12 12:15 | Outpatient (BNVA) | payer OTHER, SELFPAY | PROVIDERS: PCP Internal Medicine; Visit Provider Internal Medicine | DX: Z00.01 Encounter for general adult medical examination with abnormal findings (principal); E28.2 Polycystic ovarian syndrome; K59.09 Other constipation; R03.0 Elevated blood-pressure reading, without diagnosis of hypertension; K59.01 Slow transit constipation; E66.09 Other obesity due to excess calories; Z68.30 Body mass index [BMI] 30.0-30.9, adult | CPT/HCPCS: 96127 ==

== ENCOUNTER 2025-04-20 07:52 | Outpatient (REF) | payer OTHER, SELFPAY ==
--- OUTSIDE RECORDS SUMMARY | 2025-04-20 07:57 | XMS_ITS | Clinical Summary ---
Author Organization [address] Address [address] [place] [id number] Care Team Providers Care Special Loan Officer Name Role Phone No, Pcp (Do Not [...] patient's age to complete this topic Insurance [facility] BS BS Care Teams Special Loan Officer Relationship Specialty Start Date End Date No, Pcp (Do Not Change Name) PCP - General 09/25/24
[2025-04-20 10:31] LABS: MANUAL DIFF FLAG NO
[2025-04-20 10:55] LABS: Hematocrit 42.3 % (37.0-47.0); Hemoglobin 13.6 g/dl (12.0-16.0); Imm Gran Abs Auto 0.03 X10*3/uL (0.00-0.03); Imm Gran Pct Auto 0.3 % (0.0-0.4); Lymphocytes Absolute Auto 2.5 X10*3/uL (1.2-4.9); Mean Corpuscular HGB Conc 32.2 g/dl (31.0-35.0); Mean Corpuscular Hemoglobin 27.0 pg (27.0-33.0); Mean Corpuscular Volume 83.9 fL (80.0-98.0); NRBC Abs Auto 0.000 X10*3/uL (0.0-0.012); NRBC Pct Auto 0.0 /100WBC (0.0-0.2); Platelet Count 372 X10*3/uL (160-400); Red Blood Count 5.04 X10*6/uL (4.20-5.50); White Blood Count 9.6 X10*3/uL (4.8-10.8)
[2025-04-20 11:11] LABS: Alanine Aminotransferase 11 U/L (0-31); Albumin Level 3.8 g/dL (3.5-5.0); Alkaline Phosphatase 109 U/L (39-117); Anion Gap 10 (12-20); Aspartate Amino Transferase 20 U/L (5-31); Blood Urea Nitrogen 8 mg/dL (9-16); Calcium 9.2 mg/dL (8.4-10.2); Carbon Dioxide 25 mmol/L (22-29); Chloride 106 mmol/L (96-108); Cholesterol 220 mg/dL (<200); Estimated Glomerular Filt Rate > 60; HDL Cholesterol 77 mg/dL (>40); Potassium 4.4 mmol/L (3.3-5.1); Sodium 137 mmol/L (135-145); Total Protein 7.9 g/dL (6.5-8.0); Triglycerides 99 mg/dL (<150)
== END 2025-04-20 07:53 | disposition home or self-care (01) ==
LOC: HO.HMGCLDS 07:52
PROVIDERS: PCP Internal Medicine; Visit Provider Internal Medicine
DX: Z00.01 Encounter for general adult medical examination with abnormal findings (principal); E66.09 Other obesity due to excess calories; E28.2 Polycystic ovarian syndrome; Z13.1 Encounter for screening for diabetes mellitus; Z13.29 Encounter for screening for other suspected endocrine disorder
CPT/HCPCS: 36415; 80053; 80061; 83036; 84443; 85025